=== PATIENT | male | born 1985 | race Caucasian/White ===

== ENCOUNTER → 2024-01-06 16:02 | Outpatient (CLI) | payer OTHER, SELFPAY | LOC: LAB 16:04 | PROVIDERS: Referring Provider Ophthalmology; Visit Provider Ophthalmology | DX: H10.023 Other mucopurulent conjunctivitis, bilateral (principal) | CPT/HCPCS: 87070; 87075; 87205; 87252 ==

== ENCOUNTER → 2024-12-08 08:57 | Outpatient (CLI) | payer OTHER, SELFPAY ==
--- NOTE | 2024-12-08 08:59 | DI.RAD.S_ITS ---
PROCEDURE: XR LUMBAR SPINE 2-3V INDICATIONS: Low back pain TECHNIQUE: 3 views of the lumbar spine were acquired. COMPARISON: None. FINDINGS: Lumbar spine curvature and alignment: Normal. Bones: There are no osseous abnormalities. Disc spaces: Normal in height without significant degeneration. Mild L4-5 and L5-S1 degenerative facet disease noted. Soft tissues: No soft tissue swelling, calcification or mass. IMPRESSION: Mild L4-5 and L5-S1 degenerative facet disease. Dictated by: Alexey Varela M.D. on 12/08/2024 at 11:43 Approved by: Alexey Varela M.D. on 12/08/2024 at 11:44
--- NOTE | 2024-12-08 08:59 | DI.RAD.S_ITS ---
PROCEDURE: XR HIP W PEL IF DONE RT 2V INDICATIONS: Right hip pain TECHNIQUE: AP pelvis and frogleg right hip were acquired. COMPARISON: None. FINDINGS: Bones: CAM configuration right femoral head neck junction would predispose to femoral acetabular impingement and lateral labral tear SI and hip joints: Minimal right hip degeneration appreciated. The left hip and both SI joints are normal. Soft tissues: No soft tissue swelling, calcification or mass. IMPRESSION: Minimal right hip degeneration. CAM configuration right femoral head neck junction please see above Dictated by: Alexey Varela M.D. on 12/08/2024 at 11:44 Approved by: Alexey Varela M.D. on 12/08/2024 at 11:45
== END ==
PROVIDERS: PCP Family Medicine; Referring Provider Family Medicine; Visit Provider Family Medicine
DX: M47.816 Spondylosis without myelopathy or radiculopathy, lumbar region (principal); M47.817 Spondylosis without myelopathy or radiculopathy, lumbosacral region; M54.50 Low back pain, unspecified; M25.551 Pain in right hip
CPT/HCPCS: 72100; 73502

== ENCOUNTER → 2025-03-11 13:07 | Outpatient (CLI) | payer OTHER, SELFPAY ==
--- NOTE | 2025-03-11 13:09 | DI.MRI.S_ITS ---
PROCEDURE: MR PELVIS WO CON INDICATIONS: evaluate for swelling of SI joints TECHNIQUE: Noncontrast axial and oblique coronal T1 spin echo and STIR through the sacroiliac joints. COMPARISON: [facility], CR, XR HIP W PEL IF DONE RT 2V, 12/08/2024, 8:58. FINDINGS: Image quality: Excellent. Bones: Marrow signal of the visualized lower lumbar spine is unremarkable. The sacrum is intact. There is a small anterior bridging osteophyte at the right superior anterior sacroiliac joint, with associated mild marrow edema in the subchondral right sacral alar (07:22). There is subjacent mild muscle edema in the right iliacus, favor reactive. There is a small bridging osteophyte at the left anterior superior iliac joint, without associated marrow edema. No significant effusion within the either sacroiliac joint. No erosion or ankylosis of either sacroiliac joint. There is mild marrow edema at the right superior acetabulum (04:19), nonspecific and may represent mild stress changes. No acute fracture or dislocation either hip. Mild degenerative changes of bilateral hips. Osseous prominence of the right femoral head and neck junction, raising concern for CAM type femoral acetabular impingement. Soft tissues: The right iliopsoas tendon is unremarkable. The right adductor, hamstring, gluteal minimus and medius are unremarkable. The left iliopsoas, adductor, hamstring are unremarkable. The left gluteal minimus and medius are unremarkable. IMPRESSION: 1. 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 Associated mild marrow edema of the right anterior superior iliac joint with mild reactive subjacent muscle edema in the iliacus, favoring degenerative. 2. No MR finding to suggest sacroiliitis. 3. Mild marrow edema of the right superior acetabulum, nonspecific and may represent stress changes. 4. 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 Dictated by: Bertha Hyatt M.D. on 03/13/2025 at 9:20 Approved by: Bertha Hyatt M.D. on 03/13/2025 at 9:37
== END ==
PROVIDERS: PCP Family Medicine; Referring Provider Family Medicine; Visit Provider Orthopaedic Surgery
DX: M53.3 Sacrococcygeal disorders, not elsewhere classified (principal); M25.551 Pain in right hip; M25.851 Other specified joint disorders, right hip; M47.818 Spondylosis without myelopathy or radiculopathy, sacral and sacrococcygeal region; M25.48 Effusion, other site
CPT/HCPCS: 72195